=== PATIENT | female | born 1965 | race Caucasian/White ===

== ENCOUNTER 2019-01-01 09:58 | Emergency (ER) | payer SELFPAY ==
--- NOTE | 2019-01-01 10:26 | RAD ---
F3 views left foot. HISTORY: Intermittent left foot pain first digit. AP, lateral and oblique views left foot is obtained. There is joint space narrowing with osteophytes seen in the first metatarsophalangeal joint. Degenerative changes with osteoarthritis seen in the midfoot tarsal joints. There is also a large sahra caneal spur seen. No evidence of acute bony fracture seen. IMPRESSION: Mid tarsal left foot osteoarthritic changes as well as osteoarthritis in the first metata rsophalangeal joint.
== END 2019-01-01 11:35 | disposition home or self-care (01) ==
LOC: ERS 09:58
DX: M65.4 Radial styloid tenosynovitis [de Quervain] (principal); M25.531 Pain in right wrist; I25.10 Atherosclerotic heart disease of native coronary artery without angina pectoris; E78.5 Hyperlipidemia, unspecified; I10 Essential (primary) hypertension; F25.9 Schizoaffective disorder, unspecified; Z79.899 Other long term (current) drug therapy

== ENCOUNTER 2019-01-24 12:34 | Outpatient (CLI) | payer OTHER ==
--- NOTE | 2019-01-24 12:56 | RAD ---
TWO VIEWS OF THE CHEST: COMPARISON: None. HISTORY: Disability exam. Chest pain. FINDINGS: Two views of the chest show normal sized cardiomediastinal silhouette. There is no evidence of consol idation, mass, or pleural effusion. The bones are unremarkable. IMPRESSION: No evidence of acute cardiopulmonary disease. POS: [facility]
== END 2019-01-24 12:35 | disposition home or self-care (01) ==
LOC: BICRAD 12:34
PROVIDERS: ATTEND Orthopaedic Surgery
DX: Z02.71 Encounter for disability determination (principal)
CPT/HCPCS: 71046

== ENCOUNTER 2023-04-04 13:47 | Outpatient (CLI) | payer OTHER | END 2023-04-04 13:48 | disposition home or self-care (01) | LOC: RAD-FRANK 13:47 | PROVIDERS: ATTEND Nurse Practitioner Family | DX: R03.0 Elevated blood-pressure reading, without diagnosis of hypertension (principal) | CPT/HCPCS: 71046 ==